=== PATIENT | male | born 1985 | race Caucasian/White ===

== ENCOUNTER 2016-08-31 20:26 | Emergency (ER) | payer OTHER ==
[~2016-08-31] VITALS: Ht 185.4 cm; Wt 77.7 kg
[2016-08-31 20:26] VITALS: BP 154/70
[2016-09-01] MEDS ORDERED: IBUP600T26 PO (00:09)
--- NOTE | 2016-09-01 08:43 | REP ---
Right ankle series: Four views. History: Trauma. Findings: Four views of the right ankle demonstrate an intact ankle mortise. No fracture is seen. There is anterolateral soft tissue swelling. Impression: No fracture noted. Signed by Anthony Rosas MD 09/01/2016 09:55 A
== END 2016-09-01 00:19 | disposition home or self-care (01) ==
LOC: M ED 22:08
DX: S93.401A Sprain of unspecified ligament of right ankle, initial encounter (principal); W19.XXXA Unspecified fall, initial encounter; Y92.009 Unspecified place in unspecified non-institutional (private) residence as the place of occurrence of the external cause; Y93.89 Activity, other specified; Y99.8 Other external cause status